=== PATIENT | male | born 1960 | race Caucasian/White ===

== ENCOUNTER 2021-01-09 08:00 | Outpatient (CLI) | payer BC, SELFPAY | END 2021-01-09 08:01 | disposition home or self-care (01) | LOC: ANHCOVIDVC 08:00 | PROVIDERS: PCP Family Medicine | DX: Z23 Encounter for immunization (principal) | CPT/HCPCS: 0001A; 91300 ==

== ENCOUNTER 2021-01-30 08:00 | Outpatient (CLI) | payer BC, SELFPAY | END 2021-01-30 08:01 | disposition home or self-care (01) | LOC: ANHCOVIDVC 08:00 | PROVIDERS: PCP Family Medicine | DX: Z23 Encounter for immunization (principal) | CPT/HCPCS: 0002A; 91300 ==

== ENCOUNTER 2021-04-24 17:16 | Outpatient (CLI) | payer BC, SELFPAY ==
[2021-04-24 17:35] LABS: Basophils Percent Auto 0.5 % (0.2-1.2); Eosinophils Absolute Auto 0.5 K/mm3 (0-0.3); Eosinophils Percent Auto 7.1 % (0-4.4); Hematocrit 45.7 % (42.0-52.0); Hemoglobin 14.8 g/dL (14.0-18.0); Immature Granulocyte Absolute 0.01 K/mm3 (0.00-0.031); Immature Granulocyte Percent A 0.1 % (0-0.5); Lymphocytes Absolute Auto 1.79 K/mm3 (0.9-3.2); Lymphocytes Percent Auto 24.1 % (18.3-44.2); Mean Corpuscular HGB Conc 32.4 g/dl (32-36); Mean Corpuscular Volume 92.7 fl (80-100); Mean Platelet Volume 9.7 fl (7.4-10.4); Monocytes Absolute Auto 0.6 K/mm3 (0.1-0.6); Monocytes Percent Auto 7.8 % (2.6-8.5); Neutrophils Absolute Auto 4.5 K/mm3 (1.3-6.7); Neutrophils Percent Auto 60.4 % (45.5-73.1); Platelet Count Result 194 k/mm3 (150-375); Red Blood Count 4.93 M/mm3 (4.6-6.20); Red Cell Distribution Width 12.8 % (11.5-14.5); White Blood Count 7.4 K/mm3 (4.5-10.0)
[2021-04-24 18:21] LABS: Alanine Aminotransferase 19 U/L (4-50); Albumin Level 4.1 g/dL (3.5-5.1); Alkaline Phosphatase 73 U/L (38-126); Anion Gap 8 mmol/L (8-16); Aspartate Amino Transferase 30 U/L (17-59); Bilirubin,Total 0.4 mg/dL (0.2-1.3); Blood Urea Nitrogen 19 mg/dL (9-20); Calcium 9.5 mg/dL (8.4-10.2); Carbon Dioxide 24 mmol/L (22-30); Chloride 110 mmol/L (98-107); Cholesterol 165 mg/dL (0-200); Estimated Glomerular Filt Rate > 60; Glucose 107 mg/dL (75-110); HDL Direct 42 mg/dL; Potassium 4.3 mmol/L (3.4-5.0); Sodium 142 mmol/L (137-145); Triglycerides 124 mg/dL (<150)
[2021-04-24 18:32] LABS: LDL Cholesterol Direct 87 mg/dL
[2021-04-24 22:09] LABS: Vitamin D 25 Hydroxy 47.9 ng/mL
== END 2021-04-24 17:17 | disposition home or self-care (01) ==
LOC: ANHLAB 17:20
PROVIDERS: PCP Family Medicine; Visit Provider Family Medicine
DX: E55.9 Vitamin D deficiency, unspecified (principal); Z79.899 Other long term (current) drug therapy; Z13.220 Encounter for screening for lipoid disorders; Z12.5 Encounter for screening for malignant neoplasm of prostate
CPT/HCPCS: 36415; 80053; 80061; 82306; 84153; 84443; 85025

== ENCOUNTER 2021-05-15 09:09 | Outpatient (CLI) | payer BC, SELFPAY ==
--- NOTE | ~2021-05-15 | CT_ITS ---
EXAMINATION: CT diagnostic chest w con EXAM DATE: 05/15/2021 09:30 INDICATION: R91.8 - Other nonspecific abnormal finding of lung field. TECHNIQUE: Spiral CT of the chest following intravenous injection of 75 mL Omnipaque 350. Axial, cor onal and sagittal images of the chest were reviewed. Coronal maximum intensity pixel images of chest reviewed. The dose-length product (DLP) for this examination was 512.75 mGy-cm. The exposure was t ailored according to patient size (auto mA exposure control), and iterative reconstruction (ASIR) was used as additional dose reduction technique. Comparison is made to prior examination from 07/23/2014. FINDINGS: There is 5 mm left lower lobe noncalcified granuloma, stable. The lungs are otherwise lorene r. Small pericardial effusion. There is mild emphysema. Tracheobronchial tree is patent. There is no mediastinal, hilar or axillary lymphadenopathy. There is no pneumothorax. Heart normal in siz e. There is minimal coronary arterial calcification, arterial sclerosis. Upper abdomen is unremark able. There is thoracic spondylosis without osteoblastic or osteolytic lesions identified. IMPRESSION: 1. Left lower lobe granuloma. 2. Mild emphysema. 3. Small pericardial effusion. Reviewed, dictated and finalized at location A.
== END 2021-05-15 09:10 ==
LOC: MICIMG 09:10
PROVIDERS: PCP Family Medicine; Visit Provider Family Medicine
DX: R91.8 Other nonspecific abnormal finding of lung field (principal); J43.9 Emphysema, unspecified; I31.3 Pericardial effusion (noninflammatory)
CPT/HCPCS: 71260; Q9967

== ENCOUNTER 2021-08-07 01:52 | Day surgery (SDC) | payer OTHER, SELFPAY ==
[2021-07-04 15:59] VITALS: BMI 33.2
--- NOTE | 2021-07-14 10:40 | SUR.PREOP ---
Patient states he has been taking care of his granddaughter. She tested positive for COVID on 07-14-21. Patient wanting to reschedule.
--- NOTE | 2021-07-25 14:50 | PC.NURSE ---
Pt interviewed last 07/04/21. Pt called today to update on time and instructions.
[2021-08-07 09:10] VITALS: BP 132/83; PULSE 80; RESP 20; O2SAT 98
--- NOTE | 2021-08-07 09:32 | WPDANESEPPF ---
Anes - Initial Pre Proc Eval Procedure: Operation Date: 08/07/21 10:00 Proposed Procedures p Screening Colonoscopy - Dieudonne Barfield MD Date/Time: 08/07/21 09:32 Surgeon: Dieudonne Barfield MD Pre Op Diagnosis: neoplasm screening Z12.11 Patient Data Age: 60 Gender: M Height: 1.75 m Weight: 97.7 kg Allergies Allergy/AdvReac Type Severity Reaction Status Date / Time Med that puts you to sleep Allergy Agitated Uncoded 07/25/21 13:03 Home Medications Medication Instructions Recorded Confirmed Type albuterol sulfate 90 mcg/actuation 2 inh INHALATION Q4-6H PRN #1 each 10/10/20 07/25/21 Rx breath activated powder inhaler budesonide-formoterol HFA 160 2 puff INHALATION QAM AND QPM 10/10/20 07/25/21 Rx mcg-4.5 mcg/actuation aerosol #10.2 gm inhaler levalbuterol HCl 1.25 mg/3 mL 1.25 mg INHALATION Q4H PRN #90 ml 05/16/21 07/25/21 Rx solution for nebulization benzonatate 100 mg capsule 100 mg PO TID PRN #30 cap 07/25/21 08/07/21 Rx methylprednisolone 4 mg tablets in See Rx Instructions PO PER PKG DIR 07/25/21 08/07/21 Rx a dose pack #21 ea Patient hx anesthesia problems: none Family hx anesthesia problems: none Results Review: All pre-operative results and documents have been reviewed as part of the pre-operative evaluation. 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 Family History Family History Father Family history of Alzheimer's disease Mother Family history of Alzheimer's disease Other Hypertension Social History Social History Smoking status: Never smoker Alcohol intake: never Substance use: never Substance use type: does not use Living arrangements: with family Additional living arrangements comments: Gender identity (if verbalized by the patient): Male Sexual Orientation (if Verbalized by the Patient): Straight or Heterosexual Spiritual care concerns: No Anes - Eval Final PreProcedure Day of Procedure 08/07/21 09:32 Patient weight: obese Heart: regular rate and rhythm Lungs: clear to auscultation Airway: Mallampati scale class II Neurological: alert and oriented Last oral intake: >/= 8 hours ASA classification: III Emergent: no Anesthetic plan: proceed Anesthesia type and monitoring: general GIVS and standard monitoring Results Review: All pre-operative results and documents have been reviewed as part of the pre-operative evaluation. Informed Consent: The patient's anesthetic plan and its attendant risks and benefits were discussed with the patient/family/POA. Questions were solicited and answers provided to the satisfaction of the patient/family/POA.
[2021-08-07] MEDS: LACTATED RINGERS 1,000 ML 150 ML IV CONT (10:01)
--- NOTE | 2021-08-07 10:34 | PM.HPGS ---
History of Present Illness History of Present Illness Consent: Risks, benefits, and alternatives have been discussed and questions answered. Patient agrees to proceed with procedure. Chief complaint: neoplasm screening Z12.11 Narrative: Aman Guzman is a 60 year old male here for first screening colonoscopy Review of Systems Constitutional: Constitutional: Denies headache(s) and Denies weakness Eyes: Eyes: Denies blurry vision ENT: Reports Normal hearing present, Denies headache(s) and Denies neck pain Cardiovascular: Cardiovascular: Denies chest pain and Denies dyspnea Respiratory: Respiratory: Denies dyspnea Gastrointestinal: Gastrointestinal: Reports no additional gastrointestinal complaints Genitourinary: Genitourinary: Denies dysuria Musculoskeletal: Musculoskeletal: Denies neck pain Integumentary/Breasts: Skin/Breast: Denies dry skin Neurologic: Reports Normal hearing present, Denies headache(s) and Denies weakness Psychiatric: Psychiatric: Denies anxiety Endocrine: Endocrine: Denies change in body appearance Hematologic/Lymphatic: Hematologic/Lymphatic: Denies easy bleeding Allergic/Immunologic: Allergic/Immunologic: Denies urticaria PMFSH Past Medical History Medical History (Updated 08/07/21 @ 10:35 by Dieudonne Barfield MD) Colon cancer screening COPD mixed type Environmental allergies Lung nodules SRIKANTH (obstructive sleep apnea) Surgical History Surgical History H/O hernia repair 1994 - inguinal hernia repair, not sure of the side 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 Family History Family History Father Family history of Alzheimer's disease Mother Family history of Alzheimer's disease Other Hypertension Social History Social History Smoking status: Never smoker Alcohol intake: never Substance use: never Substance use type: does not use Living arrangements: with family Additional living arrangements comments: Gender identity (if verbalized by the patient): Male Sexual Orientation (if Verbalized by the Patient): Straight or Heterosexual Spiritual care concerns: No Meds Home Medications and Allergies Home Medications Medication Instructions Recorded Confirmed Type albuterol sulfate 90 mcg/actuation 2 inh INHALATION Q4-6H PRN #1 each 10/10/20 07/25/21 Rx breath activated powder inhaler budesonide-formoterol HFA 160 2 puff INHALATION QAM AND QPM 10/10/20 07/25/21 Rx mcg-4.5 mcg/actuation aerosol #10.2 gm inhaler levalbuterol HCl 1.25 mg/3 mL 1.25 mg INHALATION Q4H PRN #90 ml 05/16/21 07/25/21 Rx solution for nebulization benzonatate 100 mg capsule 100 mg PO TID PRN #30 cap 07/25/21 08/07/21 Rx methylprednisolone 4 mg tablets in See Rx Instructions PO PER PKG DIR 07/25/21 08/07/21 Rx a dose pack #21 ea Allergies Allergy/AdvReac Type Severity Reaction Status Date / Time Med that puts you to sleep Allergy Agitated Uncoded 07/25/21 13:03 Exam Const: General: comfortable and no acute distress HENMT: General nose exam: Normal nares present Eyes: General: appearance normal, both eyes and all related structures Neck: Neck: no JVD Resp: Auscultation: clear to auscultation bilaterally Cardio: Rate: regular rate Rhythm: regular rhythm GI: Inspection: non-distended GI Palp: Yes Soft to palpation Skin: General skin exam: normal color Neuro: General: gait normal Speech: normal speech Extrem: General: normal to inspection Psych: Mental Status: mental status grossly normal Assessment and Plan Assessment and plan (1) Colon cancer screening: Code(s): Z12.11 - Encounter for screening for malignant neoplasm of colon Status: Acute Assessment and Plan: colonoscopy
[2021-08-07 10:54] VITALS: BP 92/61; PULSE 58; RESP 25; O2SAT 96
[2021-08-07 11:04] VITALS: BP 109/63; PULSE 75; RESP 21; O2SAT 99
[2021-08-07 11:14] VITALS: BP 111/80; PULSE 65; RESP 19; O2SAT 96
== END 2021-08-07 11:35 | disposition home or self-care (01) ==
PROVIDERS: PCP Family Medicine; Visit Provider Internal Medicine Gastroenterology
PROC: 0DJD8ZZ Inspection of Lower Intestinal Tract, Via Natural or Artificial Opening Endoscopic (ICD-10-PCS; CPT 45378; principal; 2021-08-07 10:00)
DX: Z12.11 Encounter for screening for malignant neoplasm of colon (principal); D12.0 Benign neoplasm of cecum; K64.8 Other hemorrhoids; J44.9 Chronic obstructive pulmonary disease, unspecified; G47.33 Obstructive sleep apnea (adult) (pediatric); Z79.51 Long term (current) use of inhaled steroids; E66.9 Obesity, unspecified; Z68.31 Body mass index [BMI] 31.0-31.9, adult
CPT/HCPCS: 45380; 88305; J2704; J7120

== ENCOUNTER 2023-09-21 13:54 | Emergency (ER) | payer OTHER, SELFPAY ==
--- NOTE | ~2023-09-21 | XR_ITS ---
EXAMINATION: XR ribs BI 3V w CXR 2V Exam Date/Time: 09/21/2023 14:00 CRESTER HISTORY: fell off roof onto chest 2 days ago pain center of chest Comparison: None available. RESULT: Lines, tubes, and devices: None. Lungs and pleura: Senescent changes, otherwise clear. Cardiothymic silhouette: Stable. Other: No acute osseous or upper abdominal finding. Degenerative changes in the shoulders and spine IMPRESSION: No acute cardiopulmonary process. No acute rib fracture detected. Reviewed, dictated and finalized at location K. TER
[2023-09-21 14:06] VITALS: BP 143/75; PULSE 75; RESP 16; TEMP 36.4; O2SAT 98
--- NOTE | 2023-09-21 14:18 | ED.GENADULT ---
HPI - General Adult General Chief complaint: Chest Pain Stated complaint: CHEST PAIN/INJURY Time Seen by Provider: 09/21/23 14:19 Source: patient Mode of arrival: ambulatory Limitations: no limitations History of Present Illness HPI narrative: 62-year-old male presented for complaint of midsternal chest pain after injury 2 days ago. He states he slipped and fell off of a roof and landed on his chest. Denies putting arms out to brace his fall. Reports pain is worse when taking deep breath, rates pain 6/10. States the pain is better than immediately after it occurred. Taking ibuprofen for pain. Denies headache, dizziness, neck pain, vision changes, heart racing, sob, n/v/d/f/c. Related Data Allergies Allergy/AdvReac Type Severity Reaction Status Date / Time Anesthetics - Amide Type - Allergy Intermediate Agitated Verified 09/21/23 14:03 Select A Review of Systems Review of Systems: CONSTITUTIONAL: Denies body aches, fever, chills, or sweats. EYES: Denies visual changes, redness, or discharge. ENT: Denies rhinorrhea, epistaxis, congestion, sore throat, or otalgia. CARDIOVASCULAR: Denies chest pain, palpitations, or edema. RESPIRATORY: Denies cough or dyspnea. GASTROINTESTINAL: Denies abdominal pain, nausea, vomiting, or diarrhea. GENITOURINARY: Denies dysuria or hematuria. SKIN: Denies rash, itching, or wounds. MUSCULOSKELETAL: Reports mid sternal pain and chronic right shoulder pain NEUROLOGIC: Denies headache, numbness, tingling, or weakness. 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 Family History Family History Father Family history of Alzheimer's disease Mother Family history of Alzheimer's disease Other Hypertension Social History Social History Social History: Caffeine-coffee Smoking status: Never smoker Alcohol intake: never Substance use: never Substance use type: does not use Lack of Transportation: No Lack of Food: Never True Current Housing: I Have Housing Concerned About Future Housing: No Difficulty Paying Gas/Electric Bills: No Difficulty Paying for Meds: No Currently Unemployed: No Education: Decline to Answer Difficulty w/ Childcare or Family Care: No Living arrangements: with family Additional living arrangements comments: Occupation/Education: occupation Gender identity (if verbalized by the patient): Male Sexual Orientation (if Verbalized by the Patient): Straight or Heterosexual Spiritual care concerns: No Comments At time of signature, I have reviewed and agree with nursing past medical, surgical, social and family history unless otherwise noted. Please see nursing chart for further information. There is no relevant family history pertinent to the presenting complaint Exam Narrative: GENERAL: Well-appearing, and in no acute distress. HEAD: Normocephalic, atraumatic. EYES: EOMI. No redness or drainage. Conjunctivae normal. ENT: Mucous membranes pink and moist. No rhinorrhea. NECK: Normal AROM. No vpt. CHEST: No respiratory distress. Clear to auscultation. mildly tender to sternum and medial anterior ribs; no deformity or crepitus. No flail chest. Right anterior lower ribs with minimal yellow bruising, nontender. HEART: Regular rate and rhythm. No murmur appreciated. Normal peripheral pulses. ABDOMEN: Soft, nontender, nondistended, normal active bowel sounds. EXTREMITIES: Normal range
== END 2023-09-21 14:50 | disposition home or self-care (01) ==
PROVIDERS: Emergency Provider Nurse Practitioner Family; PCP Family Medicine
DX: S20.214A Contusion of middle front wall of thorax, initial encounter (principal); W17.89XA Other fall from one level to another, initial encounter; J44.9 Chronic obstructive pulmonary disease, unspecified
CPT/HCPCS: 71046; 71110; 99214; G0463

== ENCOUNTER 2023-10-15 15:40 | Outpatient (CLI) | payer OTHER, SELFPAY ==
--- NOTE | ~2023-10-15 | XR_ITS ---
AP and oblique views of the right ribs, and PA and lateral chest radiographs Clinical History: Pain Findings: There are minimally displaced fractures at the anterior right eighth and ninth ribs, as wel l as additional minimally displaced fractures the more posterior right 10th and 11th ribs. Lungs are clear, without focal consolidation or pleural effusion. Cardiomediastinal contour is within normal li mits. Soft tissues are unremarkable. Impression: Fractures of the right eighth, ninth, 10th, 11th ribs, as detailed above. Reviewed, dictated and finalized at location M. BINDER Impression: Fractures of the right eighth, ninth, 10th, 11th ribs, as detailed above.
== END 2023-10-15 15:41 ==
PROVIDERS: PCP Family Medicine; Visit Provider Family Medicine
DX: S22.41XA Multiple fractures of ribs, right side, initial encounter for closed fracture (principal); W13.2XXA Fall from, out of or through roof, initial encounter
CPT/HCPCS: 71046; 71100

== ENCOUNTER 2024-08-04 09:36 | Outpatient (CLI) | payer OTHER, SELFPAY ==
[2024-08-04 14:33] LABS: Alanine Aminotransferase 24 U/L (6-50); Albumin Level 3.9 g/dL (3.5-5.1); Alkaline Phosphatase 64 U/L (38-126); Anion Gap 7 mmol/L (4-12); Aspartate Amino Transferase 38 U/L (17-59); Bilirubin,Total 0.7 mg/dL (0.2-1.3); Blood Urea Nitrogen 15 mg/dL (9-20); Carbon Dioxide 26 mmol/L (22-30); Chloride 104 mmol/L (98-107); Cholesterol 154 mg/dL (0-200); Estimated Glomerular Filt Rate > 60; Glucose 100 mg/dL (65-110); HDL Direct 44 mg/dL; Potassium 4.4 mmol/L (3.4-5.0); Sodium 137 mmol/L (137-145); Triglycerides 60 mg/dL (<150)
[2024-08-04 14:44] LABS: LDL Cholesterol Direct 86 mg/dL
[2024-08-04 14:57] LABS: Vitamin D 25 Hydroxy 36.5 ng/mL
[2024-08-04 15:09] LABS: Prostate Specific Antigen 1.6 ng/mL (< OR = 4.0)
[2024-08-04 15:29] LABS: Vitamin B12 > 1000.0 pg/mL (239-931)
[2024-08-04 15:50] LABS: Hemoglobin A1C 5.7 % (<5.7)
== END 2024-08-04 09:37 | disposition home or self-care (01) ==
LOC: ANHGOSHLAB 09:37
PROVIDERS: PCP Family Medicine; Visit Provider Family Medicine
DX: E78.5 Hyperlipidemia, unspecified (principal); R73.9 Hyperglycemia, unspecified; E53.8 Deficiency of other specified B group vitamins; E55.9 Vitamin D deficiency, unspecified; Z13.29 Encounter for screening for other suspected endocrine disorder; N32.81 Overactive bladder; Z00.00 Encounter for general adult medical examination without abnormal findings; Z12.5 Encounter for screening for malignant neoplasm of prostate
CPT/HCPCS: 36415; 80053; 80061; 82306; 82607; 83036; 84153; 84443; G0103

== ENCOUNTER 2025-03-22 11:39 | Emergency (ER) | payer OTHER, SELFPAY ==
[2025-03-22 11:45] VITALS: BP 131/84; PULSE 66; RESP 24; TEMP 37.2; O2SAT 98
--- OUTSIDE RECORDS SUMMARY | 2025-03-22 12:08 | XMS_ITS | Clinical Summary ---
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 Gender Identity Not on file Sexual Orientation Not on file Plan of Treatment Health Maintenance Due Date Last Done Comments Hepatitis C Virus (HCV) Screening 1960 TdaP Immunization 1960 Colonoscopy 2003 Colorectal Cancer Screening 2003 Cologuard 2008 Immunochemical Fecal Occult Blood 2008 PSA Discussion 2013 Pneumococcal Immunization (5 0+ years) (2 of 2 - PCV) 07/27/2021 07/27/2020 Influenza Immunization (#1) 07/05/20242 01/2020, 08/11/2018 SARS-COV-2 Immunization ( - 2023- season) 2024 07/24/2021, 01/30/2021, 01/09/2021 Respiratory Syncytial Virus (RSV) Immunization (Adult) (1 - 1-dose 75+ series) 2033 Pneumococcal Immunization Combined Discontinued 07/27/2020 Zoster Immunization Completed 10/16/2020, 07/27/2020 Hepatitis B Immunization Aged Out No longer eligible based on patient's age to complete this topic Meningococcal Immunization (ACWY) Aged Out No longer eligible based on patient's age to complete this topic Rotavirus Immunization Aged Out No lo nger eligible based on patient's age to complete this topic Insurance [facility] on file Care Teams Manager Logistic Relationship Specialty Start Date End Date Deanna Azul MD PCP - General Family Medicine 08/12/18
[2025-03-22 12:10] LABS: EDCOVIDSCREEN Negative (Negative); EDINFLUASCREEN Negative (Negative); EDINFLUBSCREEN Negative (Negative)
--- NOTE | 2025-03-22 12:17 | ED.URI ---
HPI - URI/Sore Throat General Chief Complaint: Upper Respiratory Infection Stated Complaint: Congestion/Runny Nose/Cough Time Seen by Provider: 03/22/25 12:18 Source: patient and RN notes reviewed Mode of arrival: ambulatory Limitations: no limitations History of Present Illness HPI Narrative: 64-year-old male presents with concern for 2 day history of headache, cough, chest hurting with cough, sinus and head congestion and pressure. Reports he is taking antihistamines, DayQuil NyQuil. Denies fever. Reports history of asthma. He is not needing to use his inhaler more than usual. MD elicited complaint: cough and sore throat Related Data Allergies Allergy/AdvReac Type Severity Reaction Status Date / Time Anesthetics - Amide Type - Allergy Intermediate Agitated Verified 03/22/25 11:52 Select A Review of Systems Review of Systems: CONSTITUTIONAL: Denies malaise, chills, sweats, or fever. EYES: Denies visual changes, redness, or discharge. ENT: Reports rhinorrhea, congestion CARDIOVASCULAR: Denies chest pain, palpitations, or edema. RESPIRATORY: Reports cough and chest congestion. Denies dyspnea. GASTROINTESTINAL: Denies abdominal pain, nausea, vomiting, diarrhea SKIN: Denies rash or itching. MUSCULOSKELETAL: Denies myalgia. NEUROLOGIC: Denies headache. 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 Family History Family History Father Family history of Alzheimer's disease Mother Family history of Alzheimer's disease Other Hypertension Social History Social History Social History: Caffeine-coffee Smoking status: Never smoker Alcohol intake: never Substance use: never Substance use type: does not use Lack of Transportation: No Lack of Food: Never True Current Housing: I Have Housing Concerned About Future Housing: No Difficulty Paying Gas/Electric Bills: No Difficulty Paying for Meds: No Currently Unemployed: No Education: Decline to Answer Difficulty w/ Childcare or Family Care: No Living arrangements: with family Additional living arrangements comments: Occupation/Education: occupation Gender identity (if verbalized by the patient): Male Sexual Orientation (if Verbalized by the Patient): Straight or Heterosexual Spiritual care concerns: No Comments At time of signature, agree with nursing past medical, surgical, social and family history. There is no relevant family history pertinent to the presenting complaint Exam Narrative: GENERAL: Well-appearing, well-nourished, and in no acute distress. HEAD: Normocephalic EYES: PERRLA, conjunctivae clear ENT: Nares clear, turbinates edematous and erythematous, clear discharge. Mucous membranes moist. TM pearly vital with sharp light reflex bilaterally; no tragal tenderness. Oropharynx not erythematous without lesions. Tonsils not enlarged and without exudate, no drooling, no hoarseness, no trismus, uvula midline. NECK: Supple. No lymphadenopathy CHEST: Clear to auscultation, breath sounds equal. No wheezing, rhonchi, rales, or stridor. No respiratory distress, speaks in full sentences. HEART: Regular rate and rhythm. No murmur heard. SKIN: Warm, dry, no rash. NEURO: Alert and oriented x3. PSYCH: Normal mood and affect Course Course Emergency Course: Patient is aware of diagnosis, understands and agrees to treatment plan. Anticipatory guidance given. Patient agrees to follow-up as directed and is aware of reasons to seek care at the emergency department. Portions of this record may have been created with voice recognition software Level of Care: Express Care Visit Vital Signs Vital signs: Vital Signs Temperature 98.9 F 03/22/25 11:45 Pulse Rate 66 03/22/25 11:45 Respiratory Rate 24 H 03/22/25 11:45 Blood Pressure 131/84 03/22/25 11:45 Pulse Oximetry 98 03/22/25 11:45 Oxygen Delivery Room Air 03/22/25 11:45 Temperature 98.9 F 03/22/25 11:45 Pulse Rate 66 03/22/25 11:45 Respiratory Rate 24 H 03/22/25 11:45 Blood Pressure 131/84 03/22/25 11:45 Pulse Oximetry 98 03/22/25 11:45 Oxygen Delivery Room Air 03/22/25 11:45 Reviewed. MDM - URI/Sore Throat MDM Narrative Medical decision making narrative: Differential diagnosis considered: Akers virus, strep pharyngitis, allergic rhinitis, upper respiratory tract infection, sinusitis, rhinosinusitis, nasopharyngitis. viral pharyngitis, otitis media, otitis externa, pneumonia, bronchitis, viral cough syndrome, viral syndrome, and influenza. Exam findings show no acute concerns or changes; patient is non-toxic appearing and is in no distress. Patient is appropriate for outpatient treatment and follow-up. Lab Data Attestation: I reviewed the patient's lab results. Labs: Lab Results 03/22/25 Range/Units 11:55 POC Influenza A Ag Negative (Negative) POC Influenza B Ag Negative (Negative) POC SARS CoV-2 Ag Negative (Negative) Critical Care Time Critical Care Time Critical Care Time: No Discharge Plan Discharge Clinical Impression: Upper respiratory infection Patient Disposition: Home Condition: Stable Instructions: Upper Respiratory Infection (ED) Additional Instructions: Viral illness may last between 7-21 days; antibiotics do not cure viral illness and are NOT recommended at this time. Recommend antihistamine such as Benadryl at night time and Zyrtec or Joellen during the day Also, recommend symptomatic treatment includes: rest, fluids, and increase humidity of the air at home. Recommend Acetaminophen as directed on the bottle to reduce fever, pain, headache. Avoid smoking/second-hand smoke. Please schedule a follow-up visit with your personal physician for further evaluation and treatment within 3-5days. Including recheck and discussion of your blood pressure. If your symptoms persist, change or worsen significantly before you can contact your personal physician then please, without delay, go to the emergency department for further evaluation. Patient Language: Honduran Prescriptions: New methylprednisolone [Medrol (Jose)] 4 mg tablets,dose pack See Rx Instructions .ROUTE .COMPLEX Qty: 21 0RF Rx Instructions: orally per package directions Follow-up/Referrals: Edith Azul MD [Primary Care Provider] - Time of Disposition: 12:27
== END 2025-03-22 12:29 | disposition home or self-care (01) ==
PROVIDERS: Emergency Provider Nurse Practitioner; PCP Family Medicine
DX: J06.9 Acute upper respiratory infection, unspecified (principal); Z20.822 Contact with and (suspected) exposure to COVID-19; J44.9 Chronic obstructive pulmonary disease, unspecified; R73.03 Prediabetes
CPT/HCPCS: 87426; 87804; 99213; G0463

== ENCOUNTER 2025-05-24 09:32 | Outpatient (CLI) | payer OTHER, SELFPAY ==
--- NOTE | ~2025-05-24 | MR_ITS ---
EXAM: MR brain/brain stem wo willy - 05/24/2025 10:00 CDT HISTORY: 64 years old Male with Other symptoms and signs involving cognitive function TECHNIQUE: Multiplanar and multisequence MRI of the brain without contrast. COMPARISON: None available. FINDINGS: BRAIN PARENCHYMA: No acute infarct or hemorrhage. No mass effect or herniation. Mild white matter chronic small vessel ischemic changes. Chronic lacunar infarct in the left basal ganglia. No susceptibility artifact on g radient echo images. VENTRICLES / EXTRA-AXIAL SPACES: No hydrocephalus or extra-axial fluid collections. CALVARIUM AND SINUSES: No calvarial lesions are visualized. The visualized sinuses and mastoid air ce lls are clear. Mild mucosal thickening of ethmoid sinuses. FLOW VOID: Intact. OTHER EXTRACRANIAL STRUCTURES: Visualized structures are normal. IMPRESSION: 1. Mild cerebral atrophy. Mild chronic small vessel ischemic changes. 2. Chronic lacunar infarct in the left basal ganglia. Reviewed, dictated and finalized at location A.
== END 2025-05-24 09:33 | disposition home or self-care (01) ==
PROVIDERS: PCP Family Medicine; Visit Provider Family Medicine
DX: R41.89 Other symptoms and signs involving cognitive functions and awareness (principal)
CPT/HCPCS: 70551

== ENCOUNTER 2025-06-14 08:01 | Emergency (ER) | payer OTHER, SELFPAY ==
--- OUTSIDE RECORDS SUMMARY | 2025-06-14 08:05 | XMS_ITS | Clinical Summary ---
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 Gender Identity Not on file Sexual Orientation Not on file Plan of Treatment Health Maintenance Due Date Last Done Comments Hepatitis C Virus (HCV) Screening 1960 TdaP Immunization 1960 Cologuard 2003 Colonoscopy 2003 Colorectal Cancer Screening 2003 Immunochemical Fecal Occult Blood 2003 Pneumococcal Immunization (5 0+ years) (2 of 2 - PCV) 07/27/2021 07/27/2020 SARS-COV-2 Immunization ( season) 2024 07/24/2021, 01/30/2021, 01/09/2021 Influenza Immunization (#1) 07/05/202507/06, 08/11/2018 Respiratory Syncytial Virus (RSV) Immunization (Adult) (1 - 1-dose 75+ series) 2033 Pneumococcal Immunization Combined Discontinued 07/27/2020 Zoster Immunization Completed 10/16/2020, 07/27/2020 Hepatitis B Immunization Aged Out No longer eligible based on patient's age to complete this topic Human Papillomavirus (HPV) Immunization Aged Out No longer eligible based on patient's age to complete this topic Meningococcal Immunization (ACWY) Aged Out No longer eligible based on patient's age to complete this topic Rotavirus Immunization Aged Out No lo nger eligible based on patient's age to complete this topic Insurance [facility] [employer] on file Care Teams Jacquard Loom Weaver Relationship Specialty Start Date End Date Deanna Azul MD PCP - General Family Medicine 08/12/18
[2025-06-14 08:10] VITALS: BP 135/81; PULSE 63; RESP 20; TEMP 36.6; O2SAT 99
--- NOTE | 2025-06-14 08:13 | ED.SKABFB ---
HPI - Skin/Abscess/Foreign Bdy General Chief complaint: Extremity Problem,Nontraumatic Stated complaint: Toe Problem Time Seen by Provider: 06/14/25 08:20 Source: patient and RN notes reviewed Mode of arrival: ambulatory Limitations: no limitations History of Present Illness HPI narrative: 64 year old male presents with concern for toenail fungus with drainage. He reports he has had toenail fungus for about a year. Over the past 2 weeks the skin below the nail bed has been open and oozing. He has been using a fungal cream with some very mild relief. He reports it is painful, not itchy. complaint: rash Related Data Allergies Allergy/AdvReac Type Severity Reaction Status Date / Time Anesthetics - Amide Type - Allergy Intermediate Agitated Verified 03/22/25 11:52 Select A Review of Systems Review of Systems: CONSTITUTIONAL: Denies malaise, chills, sweats, or fever. SKIN: Reports wrong skin with purulence drainage below both 1st digit toenails MUSCULOSKELETAL: Denies joint pain or myalgia. 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 Family History Family History Father Family history of Alzheimer's disease Mother Family history of Alzheimer's disease Other Hypertension Social History Social History Social History: Caffeine-coffee Smoking status: Never smoker Alcohol intake: never Substance use: never Substance use type: does not use Lack of Transportation: No Lack of Food: Never True Current Housing: I Have Housing Concerned About Future Housing: No Difficulty Paying Gas/Electric Bills: No Difficulty Paying for Meds: No Currently Unemployed: No Education: Decline to Answer Difficulty w/ Childcare or Family Care: No Living arrangements: with family Additional living arrangements comments: Occupation/Education: occupation Gender identity (if verbalized by the patient): Male Sexual Orientation (if Verbalized by the Patient): Straight or Heterosexual Spiritual care concerns: No Comments At time of signature, agree with nursing past medical, surgical, social and family history. There is no relevant family history pertinent to the presenting complaint Exam Narrative: GENERAL: Well-appearing, well-nourished, and in no acute distress. HEAD: Normocephalic, atraumatic. EYES: PERRLA, conjunctivae clear, and EOMI. ENT: Mucous membranes moist. NECK: Supple. No lymphadenopathy CHEST: Clear to auscultation. No respiratory distress. HEART: Regular rate and rhythm. SKIN: Warm, dry. Excoriated skin noted below both nail beds of the 1st digits of both feet with and yellow clear drainage and mild surrounding redness NEURO: Alert and oriented x3. PSYCH: Normal mood and affect Course Course Emergency Course: Patient is aware of diagnosis, understands and agrees to treatment plan. Anticipatory guidance given. Patient agrees to follow-up as directed and is aware of reasons to seek care at the emergency department. Portions of this record may have been created with voice recognition software Level of Care: Express Care Visit Vital Signs Vital signs: Reviewed. MDM - Skin/Abscess/Foreign Bdy MDM Narrative Medical decision making narrative: Does not appear at this time to be erythema multiforme, bullous, SJS, TEN; no evidence at this time to suggest RMSF, endocarditis or Lyme disease; patient looks well, nontoxic and is tolerating oral intake; no neurologic signs or symptoms; no headache, photophobia or neck pain; afebrile; appropriate for initial outpatient treatment; discussed the importance of follow-up, patient agrees; question, viral exanthema, contact dermatitis, allergic dermatitis, eczema, urticaria. No soft palate or uvula edema, no tongue, lip edema or other mucosal involvement, no respiratory compromise, no stridor, no wheezing, no wheezing, no history of syncope, no hypotension, no nausea, vomiting, or diarrhea. Instructed patient to go to nearest ER immediately for any worsening symptoms including but not limited to: fever, spreading rash, pain, sore throat, headache, dizziness, chest pain, trouble breathing, or any symptoms concerning to the patient. Critical Care Time Critical Care Time Critical Care Time: No Discharge Plan Discharge Clinical Impression: Paronychia Patient Disposition: Home Condition: Stable Instructions: Antibiotic Form, Paronychia (ED) Additional Instructions: Soak your nail: Soak your nail in a mixture of equal parts vinegar and water 3 or 4 times each day. This will help decrease inflammation. Apply a warm compress: Soak a washcloth in warm water and place it on your nail. This will help decrease inflammation. Elevate: Raise your nail above the level of your heart as often as you can. This will help decrease swelling and pain. Prop your nail on pillows or blankets to keep it elevated comfortably. Use lotion: Apply lotion after you wash your hands. This will prevent your skin from becoming too dry. Please follow-up with your primary care doctor in the next 1-2 days. If you cannot follow-up with your primary care doctor please go to the ED for any urgent issues. 2) If you have any worsening of symptoms or any other concerns please go to the ED immediately. 3) Please take medications as prescribed andcontinue taking your home medications as usual. Patient Language: Solomon Islander Prescriptions: New fluconazole 150 mg tablet 150 mg PO Q48H 3 Days Qty: 2 0RF Rx Instructions: take one dose now, and a second dose if symptoms remain in 48 hours sulfamethoxazole-trimethoprim 800-160 mg tablet 1 tablet PO Q12H 7 Days Qty: 14 0RF No Action tamsulosin [Flomax] 0.4 mg capsule 0.4 mg PO QHS Qty: 90 1RF atorvastatin [Lipitor] 10 mg tablet 10 mg PO QHS Qty: 90 1RF aspirin 81 mg tablet,delayed release (DR/EC) 81 mg PO DAILY Qty: 90 2RF Follow-up/Referrals: Edith Azul MD [Primary Care Provider] - Time of Disposition: 08:26
== END 2025-06-14 08:37 | disposition home or self-care (01) ==
PROVIDERS: Emergency Provider Nurse Practitioner; PCP Family Medicine
DX: L03.032 Cellulitis of left toe (principal); L03.031 Cellulitis of right toe; J44.9 Chronic obstructive pulmonary disease, unspecified; R73.03 Prediabetes; Z86.73 Personal history of transient ischemic attack (TIA), and cerebral infarction without residual deficits
CPT/HCPCS: 99213; G0463

== ENCOUNTER 2025-09-27 15:13 | Outpatient (CLI) | payer OTHER, SELFPAY ==
--- NOTE | ~2025-09-27 | US_ITS ---
EXAMINATION: US carotid duplex BI DATE: 09/27/2025 16:15 INDICATION: Personal history of transient ischemic attack. Speech-language deficit. TECHNIQUE: Grayscale, color Doppler, and pulsed Doppler images of the cervical carotid arteries were obtained. The degree of vessel stenosis is placed in one of the following categories: normal, <50%, 50-69%, >=70% but less than near- occlusion, near-occlusion, or total occlusion. Note that percent stenosis relative to normal distal artery lumen diameter is indirectly measured from velocity measurements as described by Dze, et al. Radiology 2003; [id number]. COMPARISON: None. FINDINGS: RIGHT: The right common carotid artery (CCA) peak systolic velocity (PSV) is 119 cm/s. The right internal carotid artery (ICA) PSV is 93 cm/s. The right ICA end- diastolic velocity (EDV) is 31 cm/s. The right ICA/CCA PSV ratio is 0.8. Grayscale and color Doppler images yield an estimate of <50% diameter reduction from plaque in the ICA. The external carotid artery (ECA) PSV is 97 cm/s. There is antegrade flow in the right vertebral artery. LEFT: The left CCA PSV is 105 cm/s. The left ICA PSV is 97 cm/s. The left ICA EDV is 25 cm/s. The left ICA/CCA PSV ratio is 0.9. Grayscale and color Doppler images yield an estimate of <50% diameter reduction from plaque in the ICA. The ECA PSV is 64 cm/s. There is antegrade flow in the left vertebral artery. IMPRESSION: 1. <50% stenosis from minimal plaque in the right internal carotid artery. 2. <50% stenosis from small amount of plaque in the left internal carotid artery. Reviewed, dictated and finalized at location A. CAL REVIEW COORDINATOR IMPRESSION: 1. <50% stenosis from minimal plaque in the right internal carotid artery. 2. <50% stenosis from small amount of plaque in the left internal carotid arter y.
--- OUTSIDE RECORDS SUMMARY | 2025-09-27 17:53 | XMS_ITS | Clinical Summary ---
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 Gender Identity Not on file Sexual Orientation Not on file Plan of Treatment Health Maintenance Due Date Last Done Comments Hepatitis C Virus (HCV) Screening 1960 TdaP Immunization 1960 Cologuard 2003 Colonoscopy 2003 Colorectal Cancer Screening 2003 Immunochemical Fecal Occult Blood 2003 Pneumococcal Immunization (5 0+ years) (2 of 2 - PCV) 07/27/2021 07/27/2020 Influenza Immunization (#1) 07/05/20252 01/2020, 08/11/2018 SARS-COV-2 Immunization ( - 2024- season) 2025 07/24/2021, 01/30/2021, 01/09/2021 Respiratory Syncytial Virus (RSV) [...] patient's age to complete this topic Insurance [facility] [employer] on file Care Teams Local Delivery Truck Driver Relationship Specialty Start Date End Date Deanna Azul MD PCP - General Family Medicine 08/12/18
== END 2025-09-27 15:14 | disposition home or self-care (01) ==
PROVIDERS: PCP Family Medicine; Visit Provider Psychiatry & Neurology Neurology
DX: I65.23 Occlusion and stenosis of bilateral carotid arteries (principal); R41.89 Other symptoms and signs involving cognitive functions and awareness; Z86.73 Personal history of transient ischemic attack (TIA), and cerebral infarction without residual deficits
CPT/HCPCS: 93880